=== PATIENT | male | born 1985 ===

== ENCOUNTER 2023-10-14 19:41 | Emergency (ER) | payer BC, SELFPAY ==
[2023-10-14 20:00] VITALS: BP 149/100
[2023-10-14 22:59] VITALS: BMI 27.3
--- NOTE | 2023-10-14 23:01 | EDRN ---
Pt says he has had tightness in his chest and palpitations today so he took the dogs for a walk to see if that would help. It did not help. Pt adds he has been having these symptoms x 2 weeks. Pt took 1mg ativan around 1910 and he got dizzy and
felt like he was going to pass out. Pt feels better now, no tightness in chest. Pt notes and occasional palpitation. No pain currently.
[2023-10-14 23:08] VITALS: BP 123/76
--- NOTE | 2023-10-14 23:25 | ED.GENMED ---
History of Present Illness
General
Chief Complaint: Heart Rate Problem
Source: patient
Exam Limitations: none
Time Seen by Provider: 10/14/23 23:09
Travel History
Have you had any contact with someone who has COVID-19?: No
Do you have any symptoms of coronavirus? Fever > 100 degrees, chills, cough, shortness of breath, sore throat, loss of taste or smell, muscle aches, or headache?: No
History of Present Illness
History of Present Illness:
37-year-old male presents with complaints of chest tightness palpitations that worsened today but has been dealing with some of the symptoms over several days. He took an Ativan today for the first time and believes he had had an adverse reaction.
He took 1 mg of Ativan about 4 and half hours prior to my exam. He is concerned however as his father of a myocardial infarction in his 50s. Patient does not have any other medical issues. He does admit to drinking 6 or 7 alcoholic beverages
last evening which is more than usual. He states since waiting in the waiting room some of his symptoms have improved. No recent travel or surgery. No leg pain or calf swelling. No other complaints at this time
Phy Exam
Physical Exam
Physical Exam:
General: Well-appearing male no acute respiratory distress
HEENT: Normocephalic atraumatic neck is supple
Heart: Regular rate and rhythm no murmurs
Lungs: Clear to auscultation bilaterally no wheezing
Skin: Warm no rash or lesions
Abdomen is soft nontender nondistended no guarding rebound normal bowel sounds
Extremities: No cyanosis or edema
Course
Orders/Labs/Results
Orders:
Orders
10/14/23 20:06
ECG [Electrocardiogram (*1)] Urgent
Reason for Study: Palpitations
Cardiology Consult: Unknown
10/14/23 20:07
EKG- Treatment ONCE
10/14/23 23:33
Complete Blood Count/With Diff Urgent
Comprehensive Metabolic Panel Urgent
TSH Reflex To Free T4 Urgent
Troponin I Urgent
Abnormal Lab Results
10/14/23
23:33
RBC 4.57 L 10^6/uL
(4.70-6.10)
Absolute Monos (auto) 0.8 H 10^3/uL
(0.1-0.6)
Monocytes % 11.4 H %
(1.7-9.3)
10/14/23 23:33
10/14/23 23:33
Vital Signs
Initial and Last Documented VS:
Initial Vital Signs
Temp Pulse Resp BP Pulse Ox
97.9 F 110 20 149/100 98
10/14/23 20:00 10/14/23 20:00 10/14/23 20:00 10/14/23 20:00 10/14/23 20:00
Last Documented Vital Signs
Temp Pulse Resp BP Pulse Ox
97.9 F 69 14 102/67 98
10/14/23 20:00 10/15/23 00:00 10/15/23 00:00 10/15/23 00:00 10/14/23 20:00
MDM/Problems Addressed
Differential Diagnosis Includes:
Chest tightness and palpitations
Family history cardiac disease. Question arrhythmia versus ACS versus anxiety response versus adverse reaction to medicine
EKG shows sinus rhythm without ischemic changes. Patient on monitor no arrhythmias noted. Will labs including troponin.
*Critical Care Note
Total Time (30-74mins, 75-104mins- exclusive of procedures): Not Applicable
Update Note
Update Note:
Troponin undetectable. Electrolytes normal blood count normal. No arrhythmias on monitor. Suspect possible anxiety versus palpitations. Stable for discharge.
ED Attending Note
-
Portions of this chart may have been created with voice recognition software.� Occasional wrong word or��sound alike� substitutions may have occurred due to the inherent limitations of voice recognition software.
Discharge Plan
Departure
Patient Disposition: Home (Routine Discharge)
Date of Disposition: 10/15/23
Time of Disposition: 00:22
Patient with high blood pressure during this ER visit?: No
Discharge Problem:
Heart palpitations
Instructions: Anxiety, Adult (DC)
Prescriptions:
No Action
lorazepam [Ativan] 1 mg Tablet
1 mg PO DAILY PRN (Reason: anxiety)
Referrals:
Andressa Henderson MD [Family Provider] -
Activity Restrictions/Additional Instructions:
Please return here for any worsening symptoms otherwise follow-up with your family doctor. Consider using half a milligram of Ativan if needed in the future
Interventions
Interventions:
*Risk Screen - Suicide Last Done: 10/14/23 20:00
*General Assessment Last Done: 10/14/23 20:00
*Neglect/Abuse Screening Last Done: 10/14/23 20:00
ED- Fall Risk Assessment Last Done: 10/14/23 20:00
*ED COVID-19 Vaccine History Last Done: 10/14/23 20:00
ED- Cardiac Assessment Last Done: 10/14/23 23:07
ED- Pulmonary Assessment Last Done: 10/14/23 23:07
[2023-10-14 23:40] LABS: % Basophils 0.7 % (0-2); % Eosinophils 1.3 % (0-6); % Immature Granulocytes 0.3 % (0-0.5); % Lymphocytes 37.2 % (20.5-51.1); % Monocytes 11.4 % (1.7-9.3); % Neutrophils 49.1 % (42.2-75.2); Absolute Basophils 0.1 10^3/uL (0-0.2); Absolute Eosinophils 0.1 10^3/uL (0-0.7); Absolute Lymphocytes 2.6 10^3/uL (1.2-3.4); Absolute Monocytes 0.8 10^3/uL (0.1-0.6); Absolute Neutrophils 3.5 10^3/uL (1.4-6.5); Hematocrit 40.9 % (39.0-52.0); Hemoglobin 14.1 g/dL (13.0-18.0); Mean Corp Hgb Conc. 34.5 g/dL (33.0-37.0); Mean Corpuscular Hgb 30.9 pg (27.0-31.0); Mean Corpuscular Volume 89.5 fL (80.0-94.0); Mean Platelet Volume 8.9 fL (7.4-10.4); Nucleated Red Blood Cells % 0 % (-); Platelet Count 242 10^3/uL (130-400); Red Blood Cell Count 4.57 10^6/uL (4.70-6.10); Red Cell Dist. Width 12.1 % (11.5-14.5)
[2023-10-15] VITALS: BP 102/67
[2023-10-15 00:04] LABS: Troponin I < 0.012 ng/ml
[2023-10-15 00:15] LABS: ALT (SGPT) 30 U/L (0-50); AST (SGOT) 32 U/L (17-59); Albumin 4.3 g/dl (3.5-5.0); Alkaline Phosphatase 77 U/L (38-126); Blood Urea Nitrogen 17 mg/dl (9-20); Calcium 9.5 mg/dl (8.4-10.2); Chloride 106 mmol/L (98-107); Estimated Creatinine Clearance > 125 ml/min; Glucose 98 mg/dl (70-99); Potassium 4.3 mmol/L (3.5-5.1); Sodium 136 mmol/L (135-145); Total Bilirubin 0.7 mg/dl (0.2-1.3); Total Protein 7.1 g/dl (6.3-8.2); eGFR > 60.00
[2023-10-15 00:25] LABS: TSH Reflex To Free T4 1.74 uIU/ml (0.47-4.68)
[2023-10-15 00:27] LABS: Carbon Dioxide 24 mmol/L (22-30)
== END 2023-10-15 00:38 | disposition home or self-care (01) ==
LOC: EMR 19:41
PROVIDERS: Physician Assistant; EMERGENCY PHYSICIAN Emergency Medicine; FAMILY PHYSICIAN Student in an Organized Health Care Education/Training Program
DX: R00.2 Palpitations (principal); R07.89 Other chest pain; R42 Dizziness and giddiness; F10.90 Alcohol use, unspecified, uncomplicated; F41.9 Anxiety disorder, unspecified; Z82.49 Family history of ischemic heart disease and other diseases of the circulatory system
CPT/HCPCS: 99283; 80053; 84443; 84484; 85025; 93005